=== PATIENT | male | born 1970 | race African-American/Black ===

== ENCOUNTER → 2016-10-12 | Outpatient (CLI) | payer OTHER ==
[~2016-10-12] VITALS: Ht 188 cm; Wt 80.1 kg
[~2016-10-12] MED LIST: CHLORHEXIDINE GLUCONATE 2 % 1 PACK (2 CLOTHS) TOPICAL PRN; INSULIN HUMAN REGULAR 1,000 UNITS/10 ML VIAL SQ PRN; LACTATED RINGER'S 1000 ML IV PRN; METOPROLOL TARTRATE 25 MG TAB PO PRN; POVIDONE IODINE 5% (ANTISEPSIS KIT) 4 APPLICATIONS EACH NARE PRN; PROPOFOL 200 MG/20 ML AMP IV PUSH ONE; SIMETHICONE SUSP DROPS 40 MG/0.6 ML 30 ML BTL ONE; SODIUM CHLORID 0.9% 500 ML IV PRN
[2016-10-12 13:00] VITALS: BP 113/65; PULSE 67; RESP 18; TEMP 98.2; O2SAT 99
[2016-10-12 15:03] VITALS: TEMP 98.7
[2016-10-12 15:23] VITALS: BP 103/69; PULSE 59; RESP 18; O2SAT 100
--- NOTE | 2016-10-14 09:49 | MR ---
cc: WALLY COX M.D. RAFAELA COATS DO DATE 10/12/2016 DATE OF 1970 PROCEDURE Total colonoscopy with ileoscopy and biopsy note INDICATION FOR THE PROCEDURE The patient is a 45-year-old male who presents today for age appropriate colon cancer screening. This procedure is being done to check for colon cancer or colon polyps. ENDOSCOPIST Wally Cox MD ECONOMICS LECTURER GI personnel ANESTHESIA Diprivan per PALLETISER OPERATOR INTRAVENOUS MEDICATIONS See above. TYPE OF INSTRUMENT Adult Pentax video colonoscope TYPE OF PREP GoLYTELY prep, the preparation was marginal. PHYSICAL EXAMINATION VITAL SIGNS: Quite stable. He is afebrile. LUNGS: Unremarkable. HEART: No murmurs. ABDOMEN: Soft and nontender. NEUROLOGIC: He is alert and oriented times three. EXTENT OF EXAMINATION Terminal ileum WITHDRAWAL TIME 13 minutes MONITORING The patient had routine blood pressure monitoring, pulse oximeter/oxygen, and cardiac monitoring were continued throughout the procedure. INFORMED CONSENT Obtained with full verbal understanding, the indication for procedure (see above), risks and complications (bleeding, perforation, infection, arrhythmias, small possibility of , etc.), benefits (we can potentially see the entire colon, remove lesions, cauterized lesions, biopsy lesions, or inject lesions, etc.), alternatives (BE, flex-sig, surgery, etc.), limitations (we may not see everything secondary to prep and anatomy in addition, the patient understands the concept of a flat adenoma which is usually not seen on a colonoscopy. In other words, the patient understands that most colon cancers occur from colon polyps, however, a handful of colon cancers occur without an apparent colon polyp and occur from a flat adenoma. So, you can have a normal colonoscopy and develop a colon cancer years after the index normal colonoscopy. The patient also understands the inherent miss rate for polyps and a malignancy). The patient also understands the fact that I may not be able to complete the exam in its entirety. All questions were answered and all parties agreed to the procedure. DESCRIPTION OF PROCEDURE With the patient in the left lateral decubitus position, a rectal exam was done and no significant pathology was felt. The above-mentioned colonoscope was inserted and passed through an extremely redundant spastic sigmoid colon, descending colon, splenic flexure, transverse colon into the ascending colon. There was paradoxical motion noted there, but I was able to push through this with moderate difficulty into the cecum and eventually terminal ileum. As the scope was drawn back, it was noted that the preparation was marginal. The terminal was benign. In the cecum and ascending colon, there were multiple superficially cratered ulcers noted. None were bleeding and there was no visible vessel. The ulcers ranged between 5 and 10 mm. Multiple biopsies were taken of the cecum and ascending colon ulcers. The bowel was quite redundant and the rest of colon was unremarkable for any ulcerations or erosions. There were three polyps noted in the rectum. Two were 2 mm in size, one was 1 mm in size. They were all sessile and all three rectal polyps were biopsied and removed. Retroflexion was accomplished in the rectum and grade 2 internal hemorrhoids were noted. Random biopsies were also were taken from the transverse colon, descending and sigmoid colon to check for IBD. There were no masses, AVMs, diverticula or other mucosal lesions noted. SPECIMEN Cecum and ascending ulcers, transverse colon, descending and sigmoid colon and rectal polyps. TOLERANCE OF PROCEDURE The scope was totally withdrawn and the patient tolerated the procedure quite well. No immediate complications. Lungs, heart, abdomen, vital signs and the rest of the physical exam is unchanged post procedure. The patient was transported in a stable state to the recovery area. IMPRESSION Multiple colon ulcers involving the right colon - The terminal ileum was unremarkable. This may be related to NSAIDs positive IBD. RECOMMENDATIONS 1. Await pathology. 2. Avoid NSAIDs 3. Postprocedure protocol was followed. 4. The patient may resume diet and medications. 5. The patient maybe discharged once post anesthesia protocol has been met. 6. Return visit in one to two months. 7. Further recommendations depending on how he does. MD RICKY Moore/STACIA /3:08 PM /9:32 AM SUSAN
== END ==
LOC: HEND 12:37
PROVIDERS: ATTEND Internal Medicine Gastroenterology
DX: Z12.11 Encounter for screening for malignant neoplasm of colon (principal); K52.9 Noninfective gastroenteritis and colitis, unspecified; K62.1 Rectal polyp; K64.8 Other hemorrhoids; K63.3 Ulcer of intestine
CPT/HCPCS: 00810; 45380; 88305; J7120